=== PATIENT | female | born 1980 | race Caucasian/White ===

== ENCOUNTER 2017-07-15 07:51 | Emergency (ER) | payer BC ==
[~2017-07-15] VITALS: Ht 149.9 cm; Wt 78.3 kg
[2017-07-15 08:44] LABS: HEMATOCRIT 40.5 % (36.0-46.0); MCH 28.1 PG (29.0-34.0); MCHC 32.8 G/DL (30.0-36.0); MCV 85.4 FL (83-99); MEAN PLAT.VOLUME 10.4 uM^3 (9.5-12.4); PLATELET COUNT 198 K/uL (156-360); RBC DIS.WIDTH-CV 12.1 % (11.8-14.6); RBC DIS.WIDTH-SD 37.4 % (39-53); RED BLOOD COUNT 4.74 M/uL (3.80-5.20); WHITE BLOOD COUNT 5.4 K/uL (4.1-10.2)
[2017-07-15 08:52] LABS: D-DIMER ELISA < 150.00 ng/mLDDU (<230)
[2017-07-15 08:54] LABS: CHLORIDE 106 mEq/L (99-109); POTASSIUM 4.1 mEq/L (3.7-5.4); SODIUM 140 mEq/L (136-147)
[2017-07-15 08:57] LABS: GLUCOSE 111 mg/dL (70-99)
[2017-07-15 08:58] LABS: ANION GAP 8 MEQ/L (2-14)
[2017-07-15 08:59] LABS: TOTAL BILIRUBIN 0.6 mg/dL (0.0-1.0)
[2017-07-15 09:00] LABS: ALKALINE PHOSPHATASE 76 IU/L (3-129); GFR ESTIMATE (CALCULATED) > 59 mL/min/
[2017-07-15 09:01] LABS: UREA NITROGEN (BUN) 7 mg/dL (9-23)
[2017-07-15 09:04] LABS: LIPASE 11 U/L (1.0-51.0)
[2017-07-15 09:10] LABS: QUANTITATIVE HCG < 4.0 MIU/ML
[2017-07-15 10:02] LABS: ADD MIUA? NO; BILIRUBIN NEGATIVE; BLOOD NEGATIVE; COLOR STRAW ((YELLOW)); GLUCOSE (STRIP) NEGATIVE; KETONES NEGATIVE; LEUKOCYTES NEGATIVE; NITRITE NEGATIVE; PROTEIN (STRIP) NEGATIVE; SPECIFIC GRAVITY 1.006 (1.000-1.030); UROBILINOGEN 0.2 MG/DL (0.2-1.0)
[2017-07-15] MEDS ORDERED: ZOFRAN ODT4 MG PO (10:36)
[2017-07-15 10:57] VITALS: BP 99/64
[2017-07-15] MEDS ORDERED: MOTRIN IB200 MG PO (21:39)
[2017-07-16] MEDS ORDERED: ATORVASTATIN CA40 MG PO (13:07)
[2017-07-16] MEDS ORDERED: ASPIR-LOW81 MG PO (13:07)
== END 2017-07-15 10:57 | disposition home or self-care (01) ==
LOC: EME 07:51
PROVIDERS: Nurse Practitioner Family
DX: R20.2 Paresthesia of skin (principal); R11.0 Nausea; R42 Dizziness and giddiness
CPT/HCPCS: 70450; 80053; 81003; 83690; 84702; 85027; 85379; 93005; 99281; 99284

== ENCOUNTER 2017-07-15 20:21 | Observation (INO) | payer BC ==
[~2017-07-15] VITALS: Ht 149.9 cm; Wt 77.8 kg
[~2017-07-15 20:21] MED LIST: ZOFRAN ODT4 MG PO
[2017-07-15 20:46] LABS: HEMATOCRIT 40.5 % (36.0-46.0); MCH 28.5 PG (29.0-34.0); MCHC 33.6 G/DL (30.0-36.0); MCV 84.9 FL (83-99); PLATELET COUNT 221 K/uL (156-360); RBC DIS.WIDTH-SD 36.8 % (39-53); RED BLOOD COUNT 4.77 M/uL (3.80-5.20); WHITE BLOOD COUNT 9.9 K/uL (4.1-10.2)
[2017-07-15 20:52] LABS: INTER. NORMALIZED RATIO 1.1; PROTHROMBIN TIME 12.3 SEC (10.2-12.9)
[2017-07-15 20:57] LABS: CHLORIDE 108 mEq/L (99-109); POTASSIUM 3.5 mEq/L (3.7-5.4); SODIUM 143 mEq/L (136-147)
[2017-07-15 20:59] LABS: GLUCOSE 129 mg/dL (70-99)
[2017-07-15 21:00] LABS: ANION GAP 10 MEQ/L (2-14)
[2017-07-15 21:01] LABS: TOTAL BILIRUBIN 0.5 mg/dL (0.0-1.0)
[2017-07-15 21:02] LABS: ALKALINE PHOSPHATASE 77 IU/L (3-129)
[2017-07-15 21:03] LABS: GFR ESTIMATE (CALCULATED) > 59 mL/min/
[2017-07-15 21:04] LABS: UREA NITROGEN (BUN) 8 mg/dL (9-23)
[2017-07-15] MEDS ORDERED: MOTRIN IB200 MG PO (21:39)
[2017-07-15 23:06] LABS: SERUM ETHYL ALCOHOL < 10 mg/dL
[2017-07-15 23:42] LABS: TOTAL CHOLESTEROL 173 mg/dL (Desirable<200); TRIGLYCERIDES 103 MG/DL (Normal: <150)
[2017-07-15 23:43] LABS: HDL CHOLESTEROL 48 MG/DL (Desirable>=50); LDL CHOLESTEROL 104 mg/dL (Desirable<100); NON-HDL CHOLESTEROL 125 mg/dL (Desirable<160)
[2017-07-16 00:15] VITALS: BP 98/53
[2017-07-16 04:15] VITALS: BP 111/66
[2017-07-16 05:05] LABS: AMPHETAMINES QUANT VALUE 0 NG/ML; BARBITUATES QUANT VALUE 0 NG/ML; BENZODIAZEPINES QUANT VALUE 0 NG/ML; BENZODIAZEPINES, URINE SCREEN Negative (200 ng/mL); MARIJUANA QUANT VALUE 0 NG/ML; OPIATES QUANTITATIVE VALUE 0 NG/ML; PHENCYCLIDINE QUANT VALUE 0 NG/ML
[2017-07-16 07:00] VITALS: BP 107/57
[2017-07-16 07:22] LABS: Estimated Average Glucose 103 mg/dL (70-123); HEMOGLOBIN A1c (GLYCOHEMOGLOB) 5.2 % HGB (Below 5.7)
[2017-07-16 12:00] VITALS: BP 98/50
[2017-07-16] MEDS ORDERED: ASPIR-LOW81 MG PO (13:07)
[2017-07-16] MEDS ORDERED: ATORVASTATIN CA40 MG PO (13:07)
[2017-07-17 11:51] LABS: LYME DISEASE SEROLOGY SCREEN NEGATIVE (NEGATIVE)
== END 2017-07-16 15:26 | disposition home or self-care (01) ==
LOC: EME 20:21 → EDOF 22:32 → ENRESERV 22:49 → 5WEST 07-16 00:15
PROVIDERS: Physician Assistant Medical
DX: R20.8 Other disturbances of skin sensation (principal); R20.2 Paresthesia of skin; R90.89 Other abnormal findings on diagnostic imaging of central nervous system; J30.9 Allergic rhinitis, unspecified; Z83.3 Family history of diabetes mellitus; Z83.49 Family history of other endocrine, nutritional and metabolic diseases
CPT/HCPCS: 70551; 80053; 80061; 80306 90; 83036; 85027; 85610; 86618; 93306; 93880; G0378; G0480